=== PATIENT | female | born 1925 | race Caucasian/White ===

== ENCOUNTER 2016-06-19 15:06 | Emergency (ER) | payer MEDICARE, BC, MEDICAID ==
--- NOTE | 2016-06-19 15:50 | EDM.PDOC ---
<Sd Villareal Brandie - Last Filed: 06/19/16 15:45> ED HISTORY OF PRESENT ILLNESS - General Chief Complaint: Respiratory Problem Stated Complaint: CANT BREATHE Time Seen by Provider: 06/19/16 15:40 Source of Information: Reports: Patient History Limitations: Reports: No limitations - History of Present Illness INITIAL COMMENTS - FREE TEXT/NARRATIVE: This 89 yo female patient reports to the ED with increased shortness of breath over the past 2 days. The patient reports her breathing had gotten much worse today after she got up from her nap. The patient reports she has been taking her water pills as directed and has been urinating normally. The patient reports she has been having some difficulties having bowel movements over the past several days. The patient does have a history of CHF. 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: Other medication(s) - Related Data Allergies/ADRs: Allergies Allergy/AdvReac Type Severity Reaction Status Date / Time lisinopril Allergy Cough Verified 06/19/16 15:24 Home Meds: Home Meds Anastrozole 1 mg PO DAILY 07/20/13 [History] Carvedilol 12.5 mg PO BID 07/20/13 [History] Furosemide 120 mg PO DAILY 07/20/13 [History] Levothyroxine [Levothroid] 125 mcg PO DAILY 07/20/13 [History] Warfarin Sodium [Jantoven] 2.5 mg PO QAM 07/20/13 [History] Albuterol [Proventil HFA] 2 puff INH Q6H PRN 07/26/14 [History] Albuterol [Proventil Neb Soln] 2.5 mg NEB Q4H PRN 07/26/14 [History] Potassium Chloride [Klor-Con 10] 20 meq PO WITHBREAKFAST 10/27/14 [History] Fluticasone/Salmeterol [Advair 250-50 Diskus] 1 puff INH DAILY 08/16/15 [History ] Past Medical History HEENT History: Reports: Hard of hearing Other HEENT History: wears glasses and has hearing aid Cardiovascular History: Reports: Afib, Cardiomyopathy, Heart Failure, Hypertension, Other (see below) Other Cardiovascular History: mitral valve regurg Respiratory History: Reports: COPD Gastrointestinal History: Reports: None Genitourinary History: Reports: Chronic renal insuffiency [employer] History: Reports: Musculoskeletal History: Reports: Arthritis, Fracture Neurological History: Reports: None Psychiatric History: Reports: None Endocrine/Metabolic History: Reports: Hypothyroidism, Osteopenia Hematologic History: Reports: Anemia Immunologic History: Reports: None Oncologic (Cancer) History: Reports: Breast, Colon Other Dermatologic History: bakers cyst - Infectious Disease History Infectious Disease History: Reports: Chicken pox, Measles, Shingles - Past Surgical History Head Surgeries/Procedures: Reports: None HEENT Surgical History: Reports: Cataract surgery Cardiovascular Surgical History: Reports: None Respiratory Surgical History: Reports: None GI Surgical History: Reports: Cholecystectomy, Colonoscopy, Other (see below) Other GI Surgeries/Procedures: colectomy Female Surgical History: Reports: Nephrectomy Oncologic Surgical History: Reports: Mastectomy Other Oncologic Surgeries/Procedures: Right side mastectomy Social & Family History - Tobacco Use Smoking Status *Q: Never Smoker Second Hand Smoke Exposure: No - Caffeine Use Caffeine Use: Reports: Tea - Alcohol Use Days Per Week of Alcohol Use: 0 - Recreational Drug Use Recreational Drug Use: No ED ROS GENERAL - Review of Systems Review Of Systems: See Below Constitutional: Reports: weakness HEENT: Reports: No symptoms Respiratory: Reports: Shortness of Breath Cardiovascular: Reports: No symptoms Endocrine: Reports: no symptoms GI/Abdominal: Reports: Constipation : Reports: no symptoms Musculoskeletal: Reports: no symptoms Skin: Reports: no symptoms Neurological: Reports: No Symptoms Psychiatric: Reports: No symptoms Hematologic/Lymphatic: Reports: no symptoms Immunologic: Reports: no symptoms ED EXAM, GENERAL - Physical Exam Exam: See Below Exam Limited By: No limitations General Appearance: alert, WD/WN, moderate distress Eye Exam: bilateral eye: EOMI, normal inspection, PERRL Ears: normal external exam, normal canal, hearing grossly normal, normal TMs Nose: normal inspection, normal mucosa, no blood Throat/Mouth: Normal inspection, Normal lips, Normal teeth, Normal gums, Normal oropharynx, Normal voice, No airway compromise Head: atraumatic, normocephalic Neck: normal inspection, supple, non-tender, full range of motion Respiratory/Chest: decreased breath sounds, rhonchi (left side) Cardiovascular: normal peripheral pulses, regular rate, rhythm, no edema, no gallop, no JVD, no murmur, no rub GI/Abdominal: normal bowel sounds, soft, non tender, no organomegaly, no distention, no abnormal bruit, no mass (Female) Exam: Deferred Rectal (Female) Exam: Deferred Back Exam: normal inspection, full range of motion, NT Extremities: normal inspection, normal range of motion, non-tender, normal capillary refill, no pedal edema Neurological: alert, oriented, CN II-XII intact, normal cognition, normal gait, normal reflexes, no motor/sensory deficits Psychiatric: normal affect, normal mood Skin Exam: Warm, Dry, Intact, Normal color, No rash Lymphatic: no adenopathy Course - Vital Signs Last Recorded V/S: Last Vital Signs Temp 36.6 C 06/19/16 19:25 Pulse 94 06/19/16 19:25 Resp 20 06/19/16 19:25 BP 129/87 06/19/16 19:25 Pulse Ox 94 L 06/19/16 19:25 - Orders/Labs/Meds Orders: Active Orders 24 hr Category Date Time Status Enema [RC] ASDIRECTED Care 06/19/16 17:28 Active RT Aerosol Therapy [RC] ASDIRECTED Care 06/19/16 16:13 Active CULTURE BLOOD [BC] Stat Lab 06/19/16 15:48 Results UA W/MICROSCOPIC [URIN] Stat Lab 06/19/16 18:15 Ordered Labs: Laboratory Tests 06/19/16 06/19/16 06/19/16 Range/Units 15:48 15:48 15:48 WBC 6.9 (5.0-10.0) 10^3/uL RBC 3.85 L (4.2-5.4) 10^6/uL Hgb 12.8 (12.0-16.0) g/dL Hct 40.1 (37.0-47.0) % MCV 104.2 H (80-100) fL MCH 33.2 (27.0-34.0) pg MCHC 31.9 L (33.0-35.0) g/dL Plt Count 255 (150-450) 10^3/uL Neut % (Auto) 61.5 (42.2-75.2) % Lymph % (Auto) 18.8 L (20.5-50.1) % Pepin % (Auto) 9.5 H (2-8) % Eos % (Auto) 9.2 H (1.0-3.0) % Baso % (Auto) 1.0 (0.0-1.0) % Sodium 140 (135-145) mmol/L Potassium 4.1 (3.6-5.0) mmol/L Chloride 100 L (101-111) mmol/L Carbon Dioxide 32.0 H (21.0-31.0) mmol/L Anion Gap 12.1 BUN 32 H (7-18) mg/dL Creatinine 1.6 H (0.6-1.3) mg/dL Est Cr Clr Drug Dosing 20.99 mL/min Estimated GFR (MDRD) 30 BUN/Creatinine Ratio 20.00 Glucose 112 H (74-105) mg/dL Lactic Acid 0.8 (0.5-2.2) mmol/L Calcium 9.6 (8.4-10.2) mg/dl Total Bilirubin 0.8 (0.2-1.0) mg/dL AST 46 H (10-42) IU/L ALT 29 (10-60) IU/L Alkaline Phosphatase 68 (42-121) IU/L B-Natriuretic Peptide 253 H (0-100) pg/ml Total Protein 7.2 (6.7-8.2) g/dl Albumin 4.0 (3.2-5.5) g/dl Globulin 3.2 Albumin/Globulin Ratio 1.25 Meds: Medications Discontinued Medications Generic Name Dose Route Start Last Admin Trade Name Isac PRN Reason Stop Dose Admin Albuterol/Ipratropium 3 ml 06/19/16 16:13 06/19/16 16:18 Duoneb 3.0-0.5 Mg/3 Ml NEB 06/19/16 16:14 3 ml ONETIME ONE Administration Departure - Departure Disposition: Home, Self-Care 01 Clinical Impression: Constipation by delayed colonic transit Instructions: Constipation, Adult Forms: ED Department Discharge Additional Instructions: 1) avoid solid foods next 48 hours 2) have soft foods, liquid diet, baby foods 3) try MIRALAX 4) follow up at clinic or recheck if there is any change or concerns. <Uriel Fregoso - Last Filed: 06/19/16 19:33> Course - Re-Assessments/Exams Free Text/Narrative Re-Assessment/Exam: 06/19/16 19:30 s/p enema feeling much better ready for home. Departure - Departure Time of Disposition: 19:31 Condition: good
--- NOTE | 2016-06-19 16:06 | CR ---
Clinical history: 89-year-old female short of breath. 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 No new signs of alveolar edema or dependent pleural effusion. Generalized air trapping. Mild kyphosis dorsal spine (superior mediastinum surgical clips and clip left side of the neck). No focal lobar pneumonia, atelectasis or collapse. No pneumothorax. CONCLUSION: Evidence of superior mediastinal surgery. Chronic cardiomegaly and air trapping. No hear t failure or lobar pneumonia.
[2016-06-19] MEDS ORDERED: Albuterol/Ipratropium 3.0-0.5 MG/3 ML Neb Soln NEB ONE (16:13)
[2016-06-19 19:25] VITALS: BP 129/87
== END 2016-06-19 19:56 | disposition home or self-care (01) ==
LOC: DL.ED 15:06
DX: K59.01 Slow transit constipation (principal); I48.91 Unspecified atrial fibrillation; I11.0 Hypertensive heart disease with heart failure; I50.9 Heart failure, unspecified; J44.9 Chronic obstructive pulmonary disease, unspecified; M19.90 Unspecified osteoarthritis, unspecified site; E03.9 Hypothyroidism, unspecified; Z86.2 Personal history of diseases of the blood and blood-forming organs and certain disorders involving the immune mechanism; Z79.01 Long term (current) use of anticoagulants; Z79.899 Other long term (current) drug therapy; Z88.8 Allergy status to other drugs, medicaments and biological substances; Z98.49 Cataract extraction status, unspecified eye; Z90.49 Acquired absence of other specified parts of digestive tract
CPT/HCPCS: 36415; 71020; 74020; 80053; 81001; 83605; 83880; 85025; 87040; 99284; 99285

== ENCOUNTER 2017-03-12 11:16 | Emergency (ER) | payer MEDICARE, BC, MEDICAID ==
[2017-03-12] MEDS ORDERED: Sodium Chloride 0.9% 10 ML Syringe FLUSH PRN (12:31)
[2017-03-12 13:48] VITALS: BP 105/61
--- NOTE | 2017-03-12 14:17 | EDM.PDOC ---
ED HPI GENERAL MEDICAL PROBLEM - General Chief Complaint: General Stated Complaint: KIDNEY FAILING Time Seen by Provider: 03/12/17 12:00 Source of Information: Reports: Patient, Family, RN, RN Notes Reviewed History Limitations: Reports: No Limitations - History of Present Illness INITIAL COMMENTS - FREE TEXT/NARRATIVE: Pt presents to the ER with family. Family states that the patient doctors with Dr. Hunter, nephrology, at [facility] in . She states her GFR are progressively gotten lower, and she has been feeling more weak, with nausea and headache. Pt family states they are ready for her to begin dialysis and Dr. Hunter would like the patient transferred to to begin this process. Onset: Gradual - Related Data Allergies Allergy/AdvReac Type Severity Reaction Status Date / Time lisinopril Allergy Cough Verified 03/12/17 11:36 Home Meds: Home Meds Anastrozole 1 mg PO DAILY 07/20/13 [History] Carvedilol 12.5 mg PO BID 07/20/13 [History] Furosemide 120 mg PO DAILY 07/20/13 [History] Levothyroxine [Levothroid] 125 mcg PO DAILY 07/20/13 [History] Warfarin Sodium [Jantoven] 2.5 mg PO QAM 07/20/13 [History] Albuterol [Proventil HFA] 2 puff INH Q6H PRN 07/26/14 [History] Albuterol [Proventil Neb Soln] 2.5 mg NEB Q4H PRN 07/26/14 [History] Potassium Chloride [Klor-Con 10] 20 meq PO WITHBREAKFAST 10/27/14 [History] Cholecalciferol (Vitamin D3) [Vitamin D3] 03/12/17 [History] Docusate Sodium [Colace] 03/12/17 [History] Loratadine [Claritin] 03/12/17 [History] Omeprazole 03/12/17 [History] Spironolactone [Aldactone] 03/12/17 [History] Past Medical History HEENT History: Reports: Hard of Hearing, Impaired Vision Other HEENT History: wears glasses and has hearing aid Cardiovascular History: Reports: Afib, Cardiomyopathy, Hypertension, Other (See Below) Other Cardiovascular History: mitral valve regurg Respiratory History: Reports: COPD Gastrointestinal History: Reports: None Genitourinary History: Reports: Chronic Renal Insuffiency 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: Musculoskeletal History: Reports: Arthritis, Fracture Neurological History: Reports: None Psychiatric History: Reports: None Endocrine/Metabolic History: Reports: Hypothyroidism, Osteopenia Hematologic History: Reports: Anemia Immunologic History: Reports: None Oncologic (Cancer) History: Reports: Breast, Colon Other Dermatologic History: bakers cyst - Infectious Disease History Infectious Disease History: Reports: Chicken Pox, Measles, Shingles - Past Surgical History Head Surgeries/Procedures: Reports: None HEENT Surgical History: Reports: Cataract Surgery Respiratory Surgical History: Reports: None GI Surgical History: Reports: Cholecystectomy, Colonoscopy, Other (See Below) Female Surgical History: Reports: Nephrectomy Endocrine Surgical History: Reports: Thyroidectomy Other Endocrine Surgeries/Procedures: Partial Oncologic Surgical History: Reports: Mastectomy Other Oncologic Surgeries/Procedures: Right side mastectomy Social & Family History - Family History Family Medical History: Noncontributory - Tobacco Use Smoking Status *Q: Never Smoker Second Hand Smoke Exposure: No - Caffeine Use Caffeine Use: Reports: Coffee, Tea - Alcohol Use Days Per Week of Alcohol Use: 0 - Recreational Drug Use Recreational Drug Use: No ED ROS GENERAL - Review of Systems Review Of Systems: ROS reveals no pertinent complaints other than HPI. ED EXAM, GENERAL - Physical Exam Exam: See Below Exam Limited By: No Limitations General Appearance: Alert, WD/WN, No Apparent Distress Eye Exam: Bilateral Eye: EOMI, Normal Inspection Ears: Normal External Exam, Hearing Grossly Normal Nose: Normal Inspection Throat/Mouth: Normal Inspection, Normal Voice, No Airway Compromise Head: Atraumatic, Normocephalic Neck: Normal Inspection, Supple, Non-Tender, Full Range of Motion Respiratory/Chest: No Respiratory Distress, Lungs Clear, No Accessory Muscle Use , Chest Non-Tender, Decreased Breath Sounds Cardiovascular: Normal Peripheral Pulses, No Edema, No Gallop, No JVD, No Rub, Systolic Murmur (+2), Irregularly Irregular Peripheral Pulses: 2+: Radial (L), Radial (R) GI/Abdominal: Normal Bowel Sounds, Soft, Non-Tender (Female) Exam: Deferred Rectal (Female) Exam: Deferred Back Exam: Normal Inspection, Full Range of Motion Extremities: Normal Inspection, Normal Range of Motion, Non-Tender, No Pedal Edema, Normal Capillary Refill Neurological: Alert, Oriented, Normal Cognition, Normal Gait, No Motor/Sensory Deficits Psychiatric: Normal Affect, Normal Mood Skin Exam: Warm, Dry, Intact, Normal Color, No Rash Lymphatic: No Adenopathy Course - Vital Signs Last Recorded V/S: Last Vital Signs Temp 96.7 F 03/12/17 13:47 Pulse 74 03/12/17 13:47 Resp 20 03/12/17 13:47 BP 105/61 03/12/17 13:47 Pulse Ox 97 03/12/17 13:47 - Orders/Labs/Meds Orders: Active Orders 24 hr Category Date Time Status Peripheral IV Care [RC] . DIRECTED Care 03/12/17 12:32 Active Peripheral IV Insertion Adult [OM.PC] Stat Oth 03/12/17 12:32 Ordered Labs: Laboratory Tests 03/12/17 03/12/17 Range/Units 12:42 12:42 WBC 9.4 (5.0-10.0) 10^3/uL RBC 4.18 L (4.2-5.4) 10^6/uL Hgb 13.8 (12.0-16.0) g/dL Hct 41.5 (37.0-47.0) % MCV 99.3 D (80-100) fL MCH 33.0 (27.0-34.0) pg MCHC 33.3 (33.0-35.0) g/dL Plt Count 254 (150-450) 10^3/uL Neut % (Auto) 81.2 H (42.2-75.2) % Lymph % (Auto) 10.3 L (20.5-50.1) % Hubbard % (Auto) 7.5 (2-8) % Eos % (Auto) 0.7 L (1.0-3.0) % Baso % (Auto) 0.3 (0.0-1.0) % Sodium 137 (135-145) mmol/L Potassium 4.2 (3.6-5.0) mmol/L Chloride 103 (101-111) mmol/L Carbon Dioxide 21.0 D (21.0-31.0) mmol/L Anion Gap 17.2 BUN 65 H D (7-18) mg/dL Creatinine 2.9 H D (0.6-1.3) mg/dL Est Cr Clr Drug Dosing 11.36 mL/min Estimated GFR (MDRD) 15 BUN/Creatinine Ratio 22.41 Glucose 120 H (74-105) mg/dL Calcium 10.0 (8.4-10.2) mg/dl Total Bilirubin 0.8 (0.2-1.0) mg/dL AST 19 (10-42) IU/L ALT 11 (10-60) IU/L Alkaline Phosphatase 30 L (42-121) IU/L Total Protein 7.3 (6.7-8.2) g/dl Albumin 4.1 (3.2-5.5) g/dl Globulin 3.2 Albumin/Globulin Ratio 1.28 Meds: Medications Discontinued Medications Generic Name Dose Route Start Last Admin Trade Name Freq PRN Reason Stop Dose Admin Sodium Chloride 10 ml 03/12/17 12:31 Saline Flush FLUSH ASDIRECTED PRN Keep Vein Open - Re-Assessments/Exams Free Text/Narrative Re-Assessment/Exam: 03/12/17 14:[address] Hunter on the phone regarding transferring the patient. She states she would like labs to be rechecked and the patient to be sent to per ambulance to begin the dialysis prep. Departure - Departure Time of Disposition: 15:51 Disposition: DC/Tfer to [facility] 02 Condition: Fair Clinical Impression: History of - hypertension, HTN, High Blood Pressure, Chronic renal impairment - Discharge Information Forms: ED Department Discharge, Interfacility Transfer EMTALA - My Orders Last 24 Hours: My Active Orders 03/12/17 12:32 Peripheral IV Care [RC] . DIRECTED Peripheral IV Insertion Adult [OM.PC] Stat - Assessment/Plan Last 24 Hours: My Active Orders 03/12/17 12:32 Peripheral IV Care [RC] . DIRECTED Peripheral IV Insertion Adult [OM.PC] Stat
== END 2017-03-12 15:45 ==
LOC: DL.ED 11:16
DX: I12.9 Hypertensive chronic kidney disease with stage 1 through stage 4 chronic kidney disease, or unspecified chronic kidney disease (principal); N18.9 Chronic kidney disease, unspecified; J44.9 Chronic obstructive pulmonary disease, unspecified; I48.91 Unspecified atrial fibrillation; E03.9 Hypothyroidism, unspecified; Z79.899 Other long term (current) drug therapy; Z88.8 Allergy status to other drugs, medicaments and biological substances
CPT/HCPCS: 36415; 80053; 85025; 99284; 99285

== ENCOUNTER 2017-06-30 15:46 | Inpatient (IN) | payer MEDICARE, BC, MEDICAID ==
[2017-06-30] MEDS ORDERED: Albuterol/Ipratropium 3.0-0.5 MG/3 ML Neb Soln NEB PRN (16:03)
[2017-06-30] MEDS ORDERED: Sodium Chloride 0.9% 10 ML Syringe FLUSH PRN (16:49)
[2017-06-30] MEDS ORDERED: Zolpidem 5 MG Tab PO PRN (16:49)
[2017-06-30] MEDS: Albuterol/Ipratropium 3.0-0.5 MG/3 ML Neb Soln NEB SCH ×2 (16:56→23:05)
--- NOTE | 2017-06-30 16:58 | PCM.HP ---
H&P History of Present Illness - General Date of Service: 06/30/17 Admit Problem/Dx: Admission Diagnosis/Problem Admission Diagnosis/Problem COPD, Moderate chronic obstructive pulmonary disease Source of Information: Patient, Provider - History of Present Illness Initial Comments - Free Text/Narative: Mrs. Gaston is an 89-year-old lady with a history of COPD, diastolic congestive heart failure with last echocardiogram October 2015 showing ejection fraction of 50-55%, atrial fibrillation. The patient has been experiencing increasing shortness of breath in the past 34 days. This is associated with wheezing. worse with activity. According To records the patient had about 4 pound weight gain. She has a nonproductive cough. No fever. No apparent sick contact although [facility]. She has no chest pain. No abdominal pain. - Related Data Allergies/Adverse Reactions: Allergies Allergy/AdvReac Type Severity Reaction Status Date / Time lisinopril Allergy Cough Verified 06/30/17 16:20 Home Medications: Home Meds Anastrozole 1 mg PO DAILY 07/20/13 [History] Carvedilol 6.25 mg PO BID 07/20/13 [History] Furosemide 40 mg PO DAILY 07/20/13 [History] Levothyroxine [Levothroid] 125 mcg PO DAILY 07/20/13 [History] Warfarin Sodium [Jantoven] 2.5 mg PO BEDTIME 07/20/13 [History] Albuterol [Proventil Neb Soln] 2.5 mg NEB Q4H PRN 07/26/14 [History] Potassium Chloride [Klor-Con 10] 10 meq PO BIDMEALS 10/27/14 [History] Docusate Sodium [Colace] 100 mg PO DAILY PRN 03/12/17 [History] Loratadine [Claritin] 10 mg PO DAILY 03/12/17 [History] Omeprazole 20 mg PO DAILY PRN 03/12/17 [History] Spironolactone [Aldactone] 25 mg PO .MWF 03/12/17 [History] Albuterol [Ventolin HFA] 2 puff INH Q6HR PRN 06/30/17 [History] Famotidine [Pepcid] 20 mg PO BID 06/30/17 [History] Past Medical History HEENT History: Reports: Hard of Hearing, Impaired Vision Other HEENT History: wears glasses and has hearing aid Cardiovascular History: Reports: Afib, Cardiomyopathy, Hypertension, Other (See Below) Other Cardiovascular History: mitral valve regurg Respiratory History: Reports: COPD Gastrointestinal History: Reports: None Genitourinary History: Reports: Chronic Renal Insuffiency [employer] History: Reports: Musculoskeletal History: Reports: Arthritis, Fracture Neurological History: Reports: None Psychiatric History: Reports: None Endocrine/Metabolic History: Reports: Hypothyroidism, Osteopenia Hematologic History: Reports: Anemia Immunologic History: Reports: None Oncologic (Cancer) History: Reports: Breast, Colon Other Dermatologic History: bakers cyst - Infectious Disease History Infectious Disease History: Reports: Chicken Pox, Measles, Shingles - Past Surgical History Head Surgeries/Procedures: Reports: None HEENT Surgical History: Reports: Cataract Surgery Respiratory Surgical History: Reports: None GI Surgical History: Reports: Cholecystectomy, Colonoscopy, Other (See Below) Female Surgical History: Reports: Nephrectomy Endocrine Surgical History: Reports: Thyroidectomy Other Endocrine Surgeries/Procedures: Partial Oncologic Surgical History: Reports: Mastectomy Other Oncologic Surgeries/Procedures: Right side mastectomy Social & Family History - Family History Family Medical History: Noncontributory - Tobacco Use Smoking Status *Q: Never Smoker Second Hand Smoke Exposure: No - Caffeine Use Caffeine Use: Reports: Coffee, Tea - Alcohol Use Days Per Week of Alcohol Use: 0 - Recreational Drug Use Recreational Drug Use: No H&P Review of Systems - Review of Systems: Review Of Systems: See Below General: Denies: Fever, Chills Pulmonary: Reports: Shortness of Breath, Wheezing, Cough. Denies: Sputum Cardiovascular: Reports: Edema (Minimal). Denies: Chest Pain Gastrointestinal: Denies: Abdominal Pain Genitourinary: Denies: Dysuria Neurological: Denies: Confusion Exam - Exam Exam: See Below - Vital Signs Vital Signs: Last Vital Signs Temp 36.6 C 06/30/17 16:00 Pulse 99 06/30/17 16:15 Resp 20 06/30/17 16:15 BP 141/91 H 06/30/17 16:15 Pulse Ox 100 06/30/17 16:15 Weight: 72.393 kg - Exam Quality Assessment: Supplemental Oxygen General: Alert, Oriented Neck: Supple Lungs: Normal Respiratory Effort, Wheezing Cardiovascular: Irregular Rhythm GI/Abdominal Exam: Normal Bowel Sounds, Soft, Non-Tender Extremities: Pedal Edema (Trace bilateral) Skin: Warm, Dry Neuro Extensive - Mental Status: Alert, Oriented x3, Normal Mood/Affect Psychiatric: Alert, Normal Affect, Normal Mood - Patient Data Lab Results Last 24 hrs: Laboratory studies were reviewed from the [facility] system g g g Glucose random a a a a a a a a a a 97 a a g Glucose random g o o Hematology o o WBC y y y y y y y y y y 7.60 y y o WBC o o y Hgb w w w w w w w w w w 12.5 w w y Hgb o o o Hct y y y y y y y y y y 37.2 y y o Hct o o y Platelet Ct w w w w w w w w w w 253 w w y Platelet Ct o o o Polys y y y y y y y y y y 67.6 y y o Polys o o y Lymphs w w w w w w w w w w 14.5 w w y Lymphs o o o Monos y y y y y y y y y y 7.4 y y o Monos o o y Eos w w w w w w w w w w 9.0 w w y Eos o o o Basos y y y y y y y y y y 1.5 y y o Basos o r r Chemistry r o Sodium o o o o o o o o o o 142 o o o Sodium r r o Potassium w w w w w w w w w w 5.1 w w o Potassium r r o Chloride o o o o o o o o o o 104 o o o Chloride r r o CO2 w w w w w w w w w w 30.8 w w o CO2 r r o BUN o o o o o o o o o o 53 o o o BUN r r o Creat w w w w w w w w w w 3.1 w w o Creat r r o Ca total o o o o o o o o o o 10.3 o o o o Chest x-ray per my reading shows a COPD configuration, no significant effusion, cardiomegaly. Per official reading HISTORY: An 89-year-old, 162-pound female complaining of increased dyspnea over the past week (hypertensive patient with chronic atrial fibrillation and history of "congestive heart failure"). INTERPRETATION: Abnormal. Subtle increase in heart size, relative increased venous congestion and small dependent new subpulmonic pleural fluid accumulation (effusion), lung base since February 25, 2017, i.e. radiographic signs of interval cardiovascular decompensation (CHF). Evidence of right breast surgery. No new lung mass, hilar lymphadenopathy, or focal lobar pneumonia. No atelectasis/collapse. No pneumothorax. CONCLUSION: Abnormal. (Mild congestive heart failure.) Problem List Initiated/Reviewed/Updated: Yes Orders Last 24hrs: Active Orders 24 hr Category Date Time Status Patient Status [ADT] Routine ADT 06/30/17 16:49 Ordered Oxygen Therapy [RC] PRN Care 06/30/17 16:49 Ordered Peripheral IV Care [RC] . DIRECTED Care 06/30/17 16:51 Ordered RT Aerosol Therapy [RC] ASDIRECTED Care 06/30/17 16:03 Active RT Aerosol Therapy [RC] ASDIRECTED Care 06/30/17 16:46 Ordered Up With Assistance [RC] ASDIRECTED Care 06/30/17 16:49 Ordered VTE/DVT Education [RC] PER UNIT ROUTINE Care 06/30/17 16:49 Ordered Vital Signs [RC] Q4H Care 06/30/17 16:49 Ordered 2 Gram Sodium Diet [DIET] Diet 06/30/17 Dinner Ordered B-TYPE NATRIURETIC PEPTIDE,BNP [CHEM] AM Lab 07/02/17 05:11 Ordered BASIC METABOLIC PANEL,BMP [CHEM] AM Lab 07/01/17 05:15 Ordered CBC WITH AUTO DIFF [HEME] AM Lab 07/01/17 05:15 Ordered INR,PT,PROTHROMBIN TIME [COAG] AM Lab 07/01/17 05:11 Ordered INR,PT,PROTHROMBIN TIME [COAG] AM Lab 07/02/17 05:11 Ordered INR,PT,PROTHROMBIN TIME [COAG] AM Lab 07/03/17 05:11 Ordered INR,PT,PROTHROMBIN TIME [COAG] AM Lab 07/04/17 05:11 Ordered INR,PT,PROTHROMBIN TIME [COAG] AM Lab 07/05/17 05:11 Ordered INR,PT,PROTHROMBIN TIME [COAG] AM Lab 07/06/17 05:11 Ordered Albuterol/Ipratropium [DuoNeb 3.0-0.5 MG/3 ML] Med 06/30/17 16:03 Active 3 ml NEB Q6HRRT PRN Albuterol/Ipratropium [DuoNeb 3.0-0.5 MG/3 ML] Med 06/30/17 23:00 Ordered 3 ml NEB Q8HRRT Anastrozole [Anastrozole] Med 07/01/17 09:00 Pending 1 mg PO DAILY Budesonide [Pulmicort] Med 06/30/17 18:00 Ordered 0.5 mg NEB BIDRT Calcitriol [Rocaltrol] Med 07/01/17 09:00 Active 0.25 mcg PO DAILY Carvedilol [Coreg] Med 06/30/17 18:00 Active 6.25 mg PO BIDMEALS Docusate Sodium [Colace] Med 07/01/17 09:00 Active 100 mg PO DAILY Furosemide [Lasix] Med 06/30/17 21:00 Active 40 mg IVPUSH BID Levothyroxine Med 07/01/17 06:00 Active 125 mcg PO DAILY@0600 Omeprazole Med 07/01/17 06:00 Active 20 mg PO ACBRK Potassium Chloride [Klor-Con 10] Med 07/01/17 08:00 Active 20 meq PO WITHBREAKFAST Sodium Chloride 0.9% [Saline Flush] Med 06/30/17 16:49 Ordered 10 ml FLUSH ASDIRECTED PRN Spironolactone [Aldactone] Med 07/01/17 09:00 Active 25 mg PO DAILY Warfarin Pharmacy to Dose [Pharmacy to Dose - Warfarin] Med 06/30/17 16:30 Pending 1 dose .XX ASDIRECTED Zolpidem [Ambien] Med 06/30/17 16:49 Ordered 5 mg PO BEDTIME PRN methylPREDNISolone Sod Succ [Solu-MEDROL] Med 06/30/17 17:00 Ordered 40 mg IVPUSH Q8H Antiembolic Hose [OM.PC] Per Unit Routine Oth 06/30/17 16:50 Ordered Peripheral IV Insertion Adult [OM.PC] Routine Oth 06/30/17 16:49 Ordered Saline Lock Insert [OM.PC] Routine Oth 06/30/17 16:49 Ordered Resuscitation Status Routine Resus Stat 06/30/17 16:49 Ordered Medication Orders Albuterol/Ipratropium (Duoneb 3.0-0.5 Mg/3 Ml) 3 ml NEB Q6HRRT PRN PRN Reason: sob, wheezing Last Admin: 06/30/17 16:16 Dose: 3 ml Albuterol/Ipratropium (Duoneb 3.0-0.5 Mg/3 Ml) 3 ml NEB Q8HRRT [facility] Budesonide (Pulmicort) 0.5 mg NEB BIDRT [facility] Calcitriol (Rocaltrol) 0.25 mcg PO DAILY [facility] Carvedilol (Coreg) 6.25 mg PO BIDMEALS [facility] Docusate Sodium (Colace) 100 mg PO DAILY [facility] Furosemide (Lasix) 40 mg IVPUSH BID [facility] Levothyroxine Sodium (Levothyroxine) 125 mcg PO DAILY@0600 [facility] Methylprednisolone Sodium Succinate (Solu-Medrol) 40 mg IVPUSH Q8H [facility] Non-Formulary Medication (Anastrozole [Anastrozole]) 1 mg PO DAILY [facility] Omeprazole (Omeprazole) 20 mg PO ACBRK [facility] Potassium Chloride (Klor-Con 10) 20 meq PO WITHBREAKFAST [facility] Sodium Chloride (Saline Flush) 10 ml FLUSH ASDIRECTED PRN PRN Reason: Keep Vein Open Spironolactone (Aldactone) 25 mg PO DAILY [facility] Warfarin Sodium (Pharmacy To Dose - Warfarin) 1 dose .XX ASDIRECTED [facility] Zolpidem Tartrate (Ambien) 5 mg PO BEDTIME PRN PRN Reason: Sleep Assessment/Plan Comment:: 89-year-old lady with a history of COPD, congestive heart failure due to diastolic dysfunction, atrial fibrillation, chronic kidney disease stage IV presented with increasing shortness of breath. #1 shortness of breath Noted acute hypoxemic respiratory failure with minimal activity We will supplement oxygen as needed #2 I believe the cause is most likely acute COPD exacerbation Has significant wheezing Not as impressive CHF changes on chest x-ray that I would expect the in comparison to symptoms Will treat the patient with IV and inhaled steroids, frequent DuoNeb White count is normal, for now hold off on antibiotics #3 possible mild acute exacerbation of diastolic congestive heart failure I will increase the diuretics We'll follow renal function tests closely, the patient has a history of chronic kidney disease stage IV continue rocaltrol #4 atrial fibrillation Follow heart rate Continue Coreg Continue anticoagulation with Coumadin #5 hypothyroidism Treat with Synthroid #6 history of breast cancer On Arimidex #7 DVT prophylaxis with full dose anticoagulation Discussed CODE STATUS with patient and family. Patient opted for DNR/DNI CODE STATUS
[2017-06-30] MEDS: Carvedilol 6.25 MG Tab PO SCH (17:33)
[2017-06-30] MEDS: methylPREDNISolone Sodium Succinate 40 MG/1 ML SDV IVPUSH SCH (17:33)
[2017-06-30] MEDS: Budesonide 0.5 MG/2 ML Neb Susp NEB SCH (19:00)
[2017-06-30] MEDS ORDERED: Furosemide 40 MG/4 ML VIAL IVPUSH SCH (21:00)
[2017-07-01] MEDS: methylPREDNISolone Sodium Succinate 40 MG/1 ML SDV IVPUSH SCH ×3 (00:36→17:42)
[2017-07-01] MEDS: Omeprazole 20 MG Cap.CR PO SCH (05:41)
[2017-07-01] MEDS: Levothyroxine 125 MCG Tab PO SCH (05:41)
[2017-07-01] MEDS: Albuterol/Ipratropium 3.0-0.5 MG/3 ML Neb Soln NEB SCH ×3 (07:11→23:02)
[2017-07-01] MEDS: Budesonide 0.5 MG/2 ML Neb Susp NEB SCH ×2 (07:11→20:09)
[2017-07-01] MEDS ORDERED: ANASTROZOLE 1 MG PO SCH (09:00)
[2017-07-01] MEDS: Carvedilol 6.25 MG Tab PO SCH ×2 (09:00→17:41)
[2017-07-01] MEDS: Spironolactone 25 MG Tab PO SCH (09:01)
[2017-07-01] MEDS: Docusate Sodium 100 MG Cap PO SCH (09:01)
[2017-07-01] MEDS: Potassium Chloride 10 MEQ Tab.ER PO SCH (09:01)
[2017-07-01] MEDS: Calcitriol 0.25 MCG Cap PO SCH (09:02)
[2017-07-01] MEDS: Furosemide 40 MG/4 ML VIAL IVPUSH SCH ×2 (09:02→13:54)
--- NOTE | 2017-07-01 11:02 | PCM.PN ---
- General Info Date of Service: 07/01/17 Admission Dx/Problem (Free Text): Admission Diagnosis/Problem Admission Diagnosis/Problem COPD, Moderate chronic obstructive pulmonary disease Functional Status: Reports: Pain Controlled - Review of Systems General: Reports: No Symptoms HEENT: Reports: No Symptoms Pulmonary: Reports: No Symptoms Cardiovascular: Reports: No Symptoms Gastrointestinal: Reports: No Symptoms Genitourinary: Reports: No Symptoms Musculoskeletal: Reports: No Symptoms Skin: Reports: No Symptoms Neurological: Reports: No Symptoms Psychiatric: Reports: No Symptoms - Patient Data Vitals - Most Recent: Last Vital Signs Temp 99.8 F 07/01/17 08:00 Pulse 104 H 07/01/17 09:00 Resp 20 07/01/17 08:00 BP 129/73 07/01/17 09:00 Pulse Ox 97 07/01/17 08:00 Weight - Most Recent: 159 lb 3.2 oz I&O - Last 24 Hours: Intake & Output 06/30/17 07/01/17 07/01/17 22:59 06:59 14:59 Intake Total 300 100 Output Total 550 Balance 300 -550 100 Lab Results Last 24 Hours: Laboratory Results - last 24 hr 06/30/17 07/01/17 07/01/17 Range/Units 17:30 06:10 06:10 WBC 7.7 (5.0-10.0) 10^3/uL RBC 3.59 L (4.2-5.4) 10^6/uL Hgb 12.0 D (12.0-16.0) g/dL Hct 37.4 (37.0-47.0) % MCV 104.2 H D (80-100) fL MCH 33.4 (27.0-34.0) pg MCHC 32.1 L (33.0-35.0) g/dL Plt Count 236 (150-450) 10^3/uL Neut % (Auto) 92.2 H (42.2-75.2) % Lymph % (Auto) 7.1 L (20.5-50.1) % [place] % (Auto) 0.6 L (2-8) % Eos % (Auto) 0.0 L (1.0-3.0) % Baso % (Auto) 0.1 (0.0-1.0) % PT 25.2 H D 22.9 H (9.0-12.0) SEC INR 2.5 H 2.3 H (0.9-1.2) Sodium (135-145) mmol/L Potassium (3.6-5.0) mmol/L Chloride (101-111) mmol/L Carbon Dioxide (21.0-31.0) mmol/L Anion Gap BUN (7-18) mg/dL Creatinine (0.6-1.3) mg/dL Est Cr Clr Drug Dosing mL/min Estimated GFR (MDRD) Glucose (74-105) mg/dL Calcium (8.4-10.2) mg/dl 07/01/17 Range/Units 06:10 WBC (5.0-10.0) 10^3/uL RBC (4.2-5.4) 10^6/uL Hgb (12.0-16.0) g/dL Hct (37.0-47.0) % MCV (80-100) fL MCH (27.0-34.0) pg MCHC (33.0-35.0) g/dL Plt Count (150-450) 10^3/uL Neut % (Auto) (42.2-75.2) % Lymph % (Auto) (20.5-50.1) % [place] % (Auto) (2-8) % Eos % (Auto) (1.0-3.0) % Baso % (Auto) (0.0-1.0) % PT (9.0-12.0) SEC INR (0.9-1.2) Sodium 139 (135-145) mmol/L Potassium 4.4 (3.6-5.0) mmol/L Chloride 100 L (101-111) mmol/L Carbon Dioxide 28.0 (21.0-31.0) mmol/L Anion Gap 15.4 BUN 52 H (7-18) mg/dL Creatinine 2.8 H (0.6-1.3) mg/dL Est Cr Clr Drug Dosing 12.75 mL/min Estimated GFR (MDRD) 16 Glucose 162 H (74-105) mg/dL Calcium 9.9 (8.4-10.2) mg/dl Med Orders - Current: Current Medications Albuterol/Ipratropium (Duoneb 3.0-0.5 Mg/3 Ml) 3 ml NEB Q6HRRT PRN PRN Reason: sob, wheezing Last Admin: 06/30/17 16:16 Dose: 3 ml Albuterol/Ipratropium (Duoneb 3.0-0.5 Mg/3 Ml) 3 ml NEB Q8HRRT [facility] Last Admin: 07/01/17 07:11 Dose: 3 ml Budesonide (Pulmicort) 0.5 mg NEB BIDRT [facility] Last Admin: 07/01/17 07:11 Dose: 0.5 mg Calcitriol (Rocaltrol) 0.25 mcg PO DAILY [facility] Last Admin: 07/01/17 09:02 Dose: 0.25 mcg Carvedilol (Coreg) 6.25 mg PO BIDMEALS [facility] Last Admin: 07/01/17 09:00 Dose: 6.25 mg Docusate Sodium (Colace) 100 mg PO DAILY [facility] Last Admin: 07/01/17 09:01 Dose: 100 mg Furosemide (Lasix) 40 mg IVPUSH BID@0800,1400 [facility] Last Admin: 07/01/17 09:02 Dose: 40 mg Levothyroxine Sodium (Levothyroxine) 125 mcg PO DAILY@0600 [facility] Last Admin: 07/01/17 05:41 Dose: 125 mcg Methylprednisolone Sodium Succinate (Solu-Medrol) 40 mg IVPUSH Q8H [facility] Last Admin: 07/01/17 09:02 Dose: 40 mg Non-Formulary Medication (Anastrozole [Anastrozole]) 1 mg PO DAILY [facility] Omeprazole (Omeprazole) 20 mg PO ACBRK [facility] Last Admin: 07/01/17 05:41 Dose: 20 mg Potassium Chloride (Klor-Con 10) 20 meq PO WITHBREAKFAST [facility] Last Admin: 07/01/17 09:01 Dose: 20 meq Sodium Chloride (Saline Flush) 10 ml FLUSH ASDIRECTED PRN PRN Reason: Keep Vein Open Spironolactone (Aldactone) 25 mg PO DAILY [facility] Last Admin: 07/01/17 09:01 Dose: 25 mg Warfarin Sodium (Pharmacy To Dose - Warfarin) 1 dose .XX ASDIRECTED [facility] Warfarin Sodium (Coumadin) 2.5 mg PO ONETIME ONE Stop: 07/01/17 14:01 Zolpidem Tartrate (Ambien) 5 mg PO BEDTIME PRN PRN Reason: Sleep Discontinued Medications Furosemide (Lasix) 40 mg IVPUSH BID [facility] Last Admin: 06/30/17 21:19 Dose: 40 mg - Exam General: Alert, Oriented HEENT: Pupils Equal, Pupils Reactive, EOMI, Mucous Membr. Moist/[place] Neck: Supple Lungs: Clear to Auscultation, Normal Respiratory Effort Cardiovascular: Regular Rate, Regular Rhythm GI/Abdominal Exam: Normal Bowel Sounds, Soft, Non-Tender, No Organomegaly, No Distention, No Abnormal Bruit, No Mass, Pelvis Stable (Female) Exam: Normal External Exam, Normal Speculum Exam, Normal Bimanual Exam Back Exam: Normal Inspection, Full Range of Motion Extremities: Normal Inspection, Normal Range of Motion, Non-Tender, No Pedal Edema, Normal Capillary Refill Skin: Warm, Dry, Intact Wound/Incisions: Healing Well Neurological: No New Focal Deficit Psy/Mental Status: Alert, Normal Affect, Normal Mood - Problem List & Annotations (1) Acute systolic CHF (congestive heart failure) SNOMED Code(s): 132115672, 401904930 Code(s): I50.21 - ACUTE SYSTOLIC (CONGESTIVE) HEART FAILURE Status: Acute Current Visit: No (2) Constipation by delayed colonic transit SNOMED Code(s): 10276013 Code(s): K59.01 - SLOW TRANSIT CONSTIPATION Status: Acute Current Visit: No (3) Fracture of metatarsal of left foot, closed SNOMED Code(s): 38740877 Code(s): S92.302A - FRACTURE OF UNSP METATARSAL BONE(S), LEFT FOOT, INIT Status: Acute Current Visit: No Qualifiers: Encounter type: initial encounter Metatarsal bone: fifth Fracture alignment: nondisplaced Qualified Code(s): S92.355A - Nondisplaced fracture of fifth metatarsal bone, left foot, initial encounter for closed fracture (4) Noncompliance SNOMED Code(s): 2314234 Code(s): Z91.19 - PATIENT'S NONCOMPLIANCE W OTH MEDICAL TREATMENT AND REGIMEN Status: Acute Current Visit: No Onset Date: 10/27/14 (5) "Sensorineural hearing loss, bilateral " SNOMED Code(s): 786526229 Code(s): H90.3 - SENSORINEURAL HEARING LOSS, BILATERAL Status: Chronic Current Visit: No (6) Afib, Atrial fibrillation SNOMED Code(s): 85170840 Code(s): I48.91 - UNSPECIFIED ATRIAL FIBRILLATION Status: Chronic Current Visit: No (7) Anemia SNOMED Code(s): 224560703 Code(s): D64.9 - ANEMIA, UNSPECIFIED Status: Chronic Current Visit: No (8) CHF, Congestive heart failure SNOMED Code(s): 98622992 Code(s): I50.9 - HEART FAILURE, UNSPECIFIED Status: Chronic Current Visit : No Onset Date: 10/27/14 (9) COPD, Moderate chronic obstructive pulmonary disease SNOMED Code(s): 604097825 Code(s): J44.9 - CHRONIC OBSTRUCTIVE PULMONARY DISEASE, UNSPECIFIED Status : Chronic Current Visit: No (10) Cardiomyopathy SNOMED Code(s): 42532768 Code(s): I42.9 - CARDIOMYOPATHY, UNSPECIFIED Status: Chronic Current Visit: No (11) Chronic renal impairment SNOMED Code(s): 212451527 Code(s): N18.9 - CHRONIC KIDNEY DISEASE, UNSPECIFIED Status: Chronic Current Visit: No (12) History of - hypertension, HTN, High Blood Pressure SNOMED Code(s): 993044264 Code(s): Z86.79 - PERSONAL HISTORY OF OTHER DISEASES OF THE CIRCULATORY SYSTEM Status: Chronic Current Visit: No (13) Hypothyroidism SNOMED Code(s): 87088984 Code(s): E03.9 - HYPOTHYROIDISM, UNSPECIFIED Status: Chronic Current Visit: No (14) Mitral valve regurgitation SNOMED Code(s): 79140768 Code(s): I34.0 - NONRHEUMATIC MITRAL (VALVE) INSUFFICIENCY Status: Chronic Current Visit: No - Problem List Review Problem List Initiated/Reviewed/Updated: Yes - Plan Plan:: 89-year-old lady with a history of COPD, congestive heart failure due to diastolic dysfunction, atrial fibrillation, chronic kidney disease stage IV presented with increasing shortness of breath. #1 shortness of breath Noted acute hypoxemic respiratory failure with minimal activity We will supplement oxygen as needed #2 I believe the cause is most likely acute COPD exacerbation Has significant wheezing Not as impressive CHF changes on chest x-ray that I would expect the in comparison to symptoms Will treat the patient with IV and inhaled steroids, frequent DuoNeb White count is normal, for now hold off on antibiotics #3 possible mild acute exacerbation of diastolic congestive heart failure I will increase the diuretics We'll follow renal function tests closely, the patient has a history of chronic kidney disease stage IV continue rocaltrol #4 atrial fibrillation Follow heart rate Continue Coreg Continue anticoagulation with Coumadin #5 hypothyroidism Treat with Synthroid #6 history of breast cancer On Arimidex #7 DVT prophylaxis with full dose anticoagulation Discussed CODE STATUS with patient and family. Patient opted for DNR/DNI CODE STATUS
[2017-07-01] MEDS ORDERED: Warfarin 2.5 MG Tab PO ONE (14:00)
[2017-07-02] MEDS: methylPREDNISolone Sodium Succinate 40 MG/1 ML SDV IVPUSH SCH ×2 (00:48→09:16)
[2017-07-02] MEDS: Levothyroxine 125 MCG Tab PO SCH (06:12)
[2017-07-02] MEDS: Omeprazole 20 MG Cap.CR PO SCH (06:12)
[2017-07-02] MEDS: Albuterol/Ipratropium 3.0-0.5 MG/3 ML Neb Soln NEB SCH (07:37)
[2017-07-02] MEDS: Budesonide 0.5 MG/2 ML Neb Susp NEB SCH (07:37)
[2017-07-02] MEDS: Furosemide 40 MG/4 ML VIAL IVPUSH SCH ×2 (09:16→14:15)
[2017-07-02] MEDS: Carvedilol 6.25 MG Tab PO SCH (09:18)
[2017-07-02] MEDS: Potassium Chloride 10 MEQ Tab.ER PO SCH (09:18)
[2017-07-02] MEDS: Docusate Sodium 100 MG Cap PO SCH (09:19)
[2017-07-02] MEDS: Spironolactone 25 MG Tab PO SCH (09:19)
[2017-07-02] MEDS: Calcitriol 0.25 MCG Cap PO SCH (09:19)
[2017-07-02 13:50] VITALS: BP 110/65
[2017-07-02] MEDS ORDERED: Warfarin 2.5 MG Tab PO ONE (14:00)
--- NOTE | 2017-07-02 14:17 | PCM.DCSUM1 ---
Discharge Summary - Hospital Course Free Text/Narrative:: Mrs. Gaston is an 89-year-old lady with a history of COPD, diastolic congestive heart failure with last electrocardiogram October 2015 showing ejection fraction of 50-55%, atrial fibrillation. She presented with increasing shortness of breath in the past 34 days. This is associated with wheezing. worse with activity. She was admitted for COPD exacerbation vs diastolic CHF exacebation. She was managed with nebulizers and IV diuretics with significant improvement in her symptoms. She is deemed stable for outpatient evaluation. She will follow with her PCP. She was educated on medication compliance and she expressed understanding. - Discharge Data Discharge Date: 07/02/17 Discharge Disposition: Home, Self-Care 01 Condition: Good - Discharge Diagnosis/Problem(s) (1) Acute systolic CHF (congestive heart failure) SNOMED Code(s): 919373347, 697567104 ICD Code: I50.21 - ACUTE SYSTOLIC (CONGESTIVE) HEART FAILURE Status: Acute Current Visit: No (2) Constipation by delayed colonic transit SNOMED Code(s): 81498003 ICD Code: K59.01 - SLOW TRANSIT CONSTIPATION Status: Acute Current Visit : No (3) Fracture of metatarsal of left foot, closed SNOMED Code(s): 02340180 ICD Code: S92.302A - FRACTURE OF UNSP METATARSAL BONE(S), LEFT FOOT, INIT Status: Acute Current Visit: No Qualifiers: Encounter type: initial encounter Metatarsal bone: fifth Fracture alignment: nondisplaced Qualified Code(s): S92.355A - Nondisplaced fracture of fifth metatarsal bone, left foot, initial encounter for closed fracture (4) Noncompliance SNOMED Code(s): 7397483 ICD Code: Z91.19 - PATIENT'S NONCOMPLIANCE W OTH MEDICAL TREATMENT AND REGIMEN Status: Acute Current Visit: No Onset Date: 10/27/14 (5) "Sensorineural hearing loss, bilateral " SNOMED Code(s): 701813170 ICD Code: H90.3 - SENSORINEURAL HEARING LOSS, BILATERAL Status: Chronic Current Visit: No (6) Afib, Atrial fibrillation SNOMED Code(s): 05291248 ICD Code: I48.91 - UNSPECIFIED ATRIAL FIBRILLATION Status: Chronic Current Visit: No (7) Anemia SNOMED Code(s): 461292187 ICD Code: D64.9 - ANEMIA, UNSPECIFIED Status: Chronic Current Visit: No (8) CHF, Congestive heart failure SNOMED Code(s): 31059700 ICD Code: I50.9 - HEART FAILURE, UNSPECIFIED Status: Chronic Current Visit: No Onset Date: 10/27/14 (9) COPD, Moderate chronic obstructive pulmonary disease SNOMED Code(s): 597927872 ICD Code: J44.9 - CHRONIC OBSTRUCTIVE PULMONARY DISEASE, UNSPECIFIED Status : Chronic Current Visit: No (10) Cardiomyopathy SNOMED Code(s): 72872390 ICD Code: I42.9 - CARDIOMYOPATHY, UNSPECIFIED Status: Chronic Current Visit: No (11) Chronic renal impairment SNOMED Code(s): 248823644 ICD Code: N18.9 - CHRONIC KIDNEY DISEASE, UNSPECIFIED Status: Chronic Current Visit: No (12) History of - hypertension, HTN, High Blood Pressure SNOMED Code(s): 912766046 ICD Code: Z86.79 - PERSONAL HISTORY OF OTHER DISEASES OF THE CIRCULATORY SYSTEM Status: Chronic Current Visit: No (13) Hypothyroidism SNOMED Code(s): 88569717 ICD Code: E03.9 - HYPOTHYROIDISM, UNSPECIFIED Status: Chronic Current Visit: No (14) Mitral valve regurgitation SNOMED Code(s): 24302602 ICD Code: I34.0 - NONRHEUMATIC MITRAL (VALVE) INSUFFICIENCY Status: Chronic Current Visit: No - Patient Instructions Diet: Heart Healthy Diet Fluid Restriction: 1500 mL Activity: As Tolerated Showering/Bathing: May Shower Notify Provider of: Fever, Increased Pain, Swelling and Redness, Nausea and/or Vomiting - Discharge Plan Prescriptions/Med Rec: Calcitriol [Rocaltrol] 0.25 mcg PO DAILY 30 Days #30 cap Spironolactone [Aldactone] 25 mg PO DAILY 30 Days #30 tablet Home Medications: Home Meds Anastrozole 1 mg PO DAILY 07/20/13 [History] Carvedilol 6.25 mg PO BID 07/20/13 [History] Furosemide 40 mg PO DAILY 07/20/13 [History] Levothyroxine [Levothroid] 125 mcg PO DAILY 07/20/13 [History] Warfarin Sodium [Jantoven] 2.5 mg PO BEDTIME 07/20/13 [History] Albuterol [Proventil Neb Soln] 2.5 mg NEB Q4H PRN 07/26/14 [History] Potassium Chloride [Klor-Con 10] 10 meq PO BIDMEALS 10/27/14 [History] Docusate Sodium [Colace] 100 mg PO DAILY PRN 03/12/17 [History] Loratadine [Claritin] 10 mg PO DAILY PRN 03/12/17 [History] Omeprazole 20 mg PO DAILY PRN 03/12/17 [History] Spironolactone [Aldactone] 25 mg PO .MWF 03/12/17 [History] Albuterol [Ventolin HFA] 2 puff INH Q6HR PRN 06/30/17 [History] Calcitriol [Rocaltrol] 0.25 mcg PO DAILY 06/30/17 [History] Famotidine [Pepcid] 20 mg PO BID 06/30/17 [History] Calcitriol [Rocaltrol] 0.25 mcg PO DAILY 30 Days #30 cap 07/02/17 [Rx] Spironolactone [Aldactone] 25 mg PO DAILY 30 Days #30 tablet 07/02/17 [Rx] - Discharge Summary/Plan Comment DC Time >30 min.: Yes - Patient Data Vitals - Most Recent: Last Vital Signs Temp 98.1 F 07/02/17 11:10 Pulse 97 07/02/17 11:10 Resp 20 07/02/17 11:10 BP 120/62 07/02/17 11:10 Pulse Ox 99 07/02/17 11:10 Weight - Most Recent: 159 lb 3.2 oz I&O - Last 24 hours: Intake & Output 07/01/17 07/02/17 07/02/17 22:59 06:59 14:59 Intake Total 250 600 Output Total 1000 Balance -750 600 Lab Results - Last 24 hrs: Laboratory Results - last 24 hr 07/02/17 07/02/17 Range/Units 05:30 05:30 PT 25.7 H (9.0-12.0) SEC INR 2.5 H (0.9-1.2) B-Natriuretic Peptide 501 H (0-100) pg/ml Med Orders - Current: Current Medications Albuterol/Ipratropium (Duoneb 3.0-0.5 Mg/3 Ml) 3 ml NEB Q6HRRT PRN PRN Reason: sob, wheezing Last Admin: 04/04/18 16:16 Dose: 3 ml Albuterol/Ipratropium (Duoneb 3.0-0.5 Mg/3 Ml) 3 ml NEB Q8HRRT [facility] Last Admin: 07/02/17 07:37 Dose: 3 ml Budesonide (Pulmicort) 0.5 mg NEB BIDRT [facility] Last Admin: 07/02/17 07:37 Dose: 0.5 mg Calcitriol (Rocaltrol) 0.25 mcg PO DAILY [facility] Last Admin: 07/02/17 09:19 Dose: 0.25 mcg Carvedilol (Coreg) 6.25 mg PO BIDMEALS [facility] Last Admin: 07/02/17 09:18 Dose: 6.25 mg Docusate Sodium (Colace) 100 mg PO DAILY [facility] Last Admin: 07/02/17 09:19 Dose: 100 mg Furosemide (Lasix) 40 mg IVPUSH BID@0800,1400 [facility] Last Admin: 07/02/17 09:16 Dose: 40 mg Levothyroxine Sodium (Levothyroxine) 125 mcg PO DAILY@0600 [facility] Last Admin: 07/02/17 06:12 Dose: 125 mcg Methylprednisolone Sodium Succinate (Solu-Medrol) 40 mg IVPUSH Q8H [facility] Last Admin: 07/02/17 09:16 Dose: 40 mg Omeprazole (Omeprazole) 20 mg PO ACBRK [facility] Last Admin: 07/02/17 06:12 Dose: 20 mg Anastrozole 1 MgPt ('s Own Med) 1 each PO DAILY [facility] Potassium Chloride (Klor-Con 10) 20 meq PO WITHBREAKFAST [facility] Last Admin: 07/02/17 09:18 Dose: 20 meq Sodium Chloride (Saline Flush) 10 ml FLUSH ASDIRECTED PRN PRN Reason: Keep Vein Open Last Admin: 07/02/17 09:20 Dose: 10 ml Spironolactone (Aldactone) 25 mg PO DAILY [facility] Last Admin: 07/02/17 09:19 Dose: 25 mg Warfarin Sodium (Pharmacy To Dose - Warfarin) 1 dose .XX ASDIRECTED [facility] Zolpidem Tartrate (Ambien) 5 mg PO BEDTIME PRN PRN Reason: Sleep Discontinued Medications Furosemide (Lasix) 40 mg IVPUSH BID [facility] Last Admin: 04/04/18 21:19 Dose: 40 mg Warfarin Sodium (Coumadin) 2.5 mg PO ONETIME ONE Stop: 07/01/17 14:01 Last Admin: 07/01/17 13:53 Dose: 2.5 mg Warfarin Sodium (Coumadin) 2.5 mg PO ONETIME ONE Stop: 07/02/17 14:01
== END 2017-07-02 15:18 | disposition home or self-care (01) | DRG 190 ==
LOC: DL.MS 15:46 → UNDOADMIN 15:46 → DL.MS 16:49
PROVIDERS: ADMIT Internal Medicine; ATTEND Internal Medicine
DX: J44.1 Chronic obstructive pulmonary disease with (acute) exacerbation (principal); I50.33 Acute on chronic diastolic (congestive) heart failure; J96.01 Acute respiratory failure with hypoxia; I42.9 Cardiomyopathy, unspecified; I13.0 Hypertensive heart and chronic kidney disease with heart failure and stage 1 through stage 4 chronic kidney disease, or unspecified chronic kidney disease; N18.4 Chronic kidney disease, stage 4 (severe); I48.91 Unspecified atrial fibrillation; H54.7 Unspecified visual loss; I34.0 Nonrheumatic mitral (valve) insufficiency; M19.90 Unspecified osteoarthritis, unspecified site; M85.80 Other specified disorders of bone density and structure, unspecified site; D64.9 Anemia, unspecified; E89.0 Postprocedural hypothyroidism; K59.01 Slow transit constipation; H90.3 Sensorineural hearing loss, bilateral; Z88.8 Allergy status to other drugs, medicaments and biological substances; Z79.01 Long term (current) use of anticoagulants; Z85.3 Personal history of malignant neoplasm of breast; Z85.038 Personal history of other malignant neoplasm of large intestine; Z90.49 Acquired absence of other specified parts of digestive tract; Z90.5 Acquired absence of kidney; Z90.11 Acquired absence of right breast and nipple; Z79.899 Other long term (current) drug therapy; Z91.14 Patient's other noncompliance with medication regimen
CPT/HCPCS: 36415; 80048; 83880; 85025; 85610; 94640; A9270-GY; J1940; J2920; J7050